=== PATIENT | female | born 1980 | race Caucasian/White ===

== ENCOUNTER 2016-08-08 17:34 | Emergency (ER) | payer OTHER ==
[~2016-08-08] VITALS: Ht 160 cm; Wt 125.0 kg
[2016-08-08 17:45] VITALS: BP 207/123; PULSE 126; RESP 24; TEMP 98; O2SAT 98
[2016-08-08 17:49] VITALS: PULSE 98
--- NOTE | 2016-08-08 17:52 | PD ---
Physical Exam Date Seen by Provider: Aug 08, 2016 Time Seen by Provider: 17:48 Data Data Last Documented VS Vital Signs Date Time Temp Pulse Resp B/P Pulse Ox O2 Delivery O2 Flow Rate FiO2 08/08/16 17:45 98.0 126 24 207/123 98 Room Air MDM Supervised Visit with ESTRELLITA: No Narrative Course 36 YO F presents via EMS with complaint of 3 day history of abdominal pain and vaginal bleeding. LMP 05/24/16. Seen at outside hospital 08/06. Vitals reviewed. Awaiting bed placement. Jia Huang Aug 08, 2016 17:52
[2016-08-08] MEDS ORDERED: SODIUM CHLORIDE 0.9% FLUSH 10 ML FLUSH IVF PRN (18:15)
[2016-08-08 18:20] VITALS: BP 233/116; PULSE 113; RESP 18; O2SAT 94
--- NOTE | 2016-08-08 18:27 | PD ---
HPI Chief Complaint: Related Problem Time Seen by Provider: 18:00 Travel History International Travel<30 days: No Contact w/Intl Traveler<30days: No Traveled to known affect area: No History of Present Illness HPI Patient was in complaining of vaginal bleeding, passing clots, lower abdominal cramping, and back pain that began approximately an hour and a half ago. Patient states she is approximately 8 weeks and was seen at a different hospital after she found out she was and did not reveal her lisinopril for high blood pressure. Patient had her lisinopril that she was on switched to methyldopa by the ER that she was seen at previously but did not have an ultrasound. Patient is A2. Denies any fevers, nausea, vomiting or chest pain, loss or change in bowel or bladder, or shortness of breath. PFSH Past Medical History Hypertension: Yes Social History Tobacco Use: No Substance Use: No Allergies-Medications (Allergen,Severity, Reaction): Coded Allergies: Bee Sting (Verified Allergy, Severe, Anaphylaxis, 08/08/16) Penicillin (Verified Allergy, Severe, UNKNOWN , 08/08/16) Reported Meds & Prescriptions Reported Meds & Active Scripts Active Lortab (Hydrocodone-Acetaminophen) 5-325 Mg Tab 1 Tab PO Q8HR PRN Ibuprofen 800 Mg Tab 800 Mg PO Q8H PRN Reported Methyldopa 500 Mg Tab 500 Mg PO DAILY Methyldopa 250 Mg Tab 250 Mg PO HS Lisinopril 5 Mg Tab 5 Mg PO DAILY Review of Systems Except as stated in HPI: all other systems reviewed are Neg Physical Exam Narrative GENERAL: Well-developed, overly nourished, in no acute distress, and non-ill appearing. SKIN: Focused skin assessment warm and dry. HEAD: Atraumatic. Normocephalic. EYES: Pupils equal and round. EOMI. No scleral icterus. No injection or drainage. ENT: No nasal bleeding or discharge. Mucous membranes pink and moist. NECK: Trachea midline. Supple. No nuclear rigidity. RESPIRATORY: No accessory muscle use. No respiratory distress. GASTROINTESTINAL: Abdomen soft, suprapubic tenderness, nondistended. Hepatic and splenic margins not palpable. No pulsatile mass. GENITOURINARY: Normal external genitalia without lesions or erythema. Vaginal vault with blood and clots. Cervical os was open with a small amount of tissue coming from the opening. This exam was performed with presence of staffing mgrBAUTISTA Guzman at all times MUSCULOSKELETAL: No obvious deformities. No clubbing. No cyanosis. No edema. Full range of motion. NEUROLOGICAL: Awake and alert. No obvious cranial nerve deficits. Motor grossly within normal limits. Normal speech. PSYCHIATRIC: Appropriate mood and affect; insight and judgment normal. Data Data Last Documented VS Orders Beta Hcg (Quant/Titer) (08/08/16 18:01) Complete Blood Count With Diff (08/08/16 18:) Basic Metabolic Panel (Bmp) (08/08/16 18:01) Complete Rh (08/08/16 18:) Urinalysis - C+S If Indicated (08/08/16 18:) Iv Access Insert/Monitor (08/08/16 18:) Ecg Monitoring (08/08/16 18:) Cath For Specimen (08/08/16 18:) Sodium Chloride 0.9% Flush (Ns Flush) (08/08/16 18:15) Morphine Inj (Morphine Inj) (08/08/16 18:30) Ondansetron Inj (Zofran Inj) (08/08/16 18:30) Morphine Inj (Morphine Inj) (08/08/16 19:45) Ketorolac Inj (Toradol Inj) (08/08/16 20:00) Labs MDM Medical Decision Making Medical Screen Exam Complete: Yes Emergency Medical Condition: Yes Differential Diagnosis Threatened miscarriage, inevitable miscarriage, completed miscarriage, spontaneous miscarriage, preeclampsia, anemia, electrolyte abnormality, other Narrative Course 1954 patient was reassessed. Obtain complaining of abdominal cramping and pain. Pelvic exam was reperformed. This time more tissue was outside the cervical os. Products of conception were easily removed using forceps sponge clamp and sent for pathology. Patient tolerated procedure well. There is no complications. This was performed with presence of the staffing mgr Darcy at all times. Patient presented with vaginal bleeding and lower abdominal pain and was found to be having a spontaneous . There is no evidence to suggest ectopic , nor cervicitis, PID or torsion at this time. There was no evidence to support colitis, diverticulitis, obstruction, abdominal or femoral herniation , volvulus, early appendicitis, or hernial incarceration or strangulation at this time. Patient is stable and no clinical evidence of anemia. There is no RH incompatibility. Patient's leukocytosis is likely stress-induced, hematuria is likely contaminant from vaginal bleeding, beta hCG was 3425. The patient was instructed to follow up with OB within 2-3 days, for repeat bloodwork and possible ultrasound to evaluate for retained products of conception, and was given contact information. She was given warnings to return if bleeding worsened , felt faint or passed out, fever, worsening pain, inability to tolerate fluids , or as needed. The patient agreed with plan. Patient in no obvious distress upon re-evaluation. All pertinent laboratory result(s) discussed with patient. Discussed all findings and plan of care with Dr. Cash prior to discharge, who is in agreement with plan of care and disposition. Patient was asked if they wanted to speak to my attending, which the patient did not wish to do at this time. Any questions/concerns in reference to patient diagnosis/condition discussed and clarified prior to patient's discharge. Reinforced sheer importance of close follow up with patient 's primary physician or primary care clinic and/or OB. Instructed patient to return to ED immediately, if symptoms return/worsen. Pt showed understanding of above instructions. Further instructions and recommendations were detailed in discharge paperwork. Pt ambulated without difficulty out of ED at discharge. Diagnosis Primary Impression: Spontaneous miscarriage Referrals: [facility] Patient Instructions: General Instructions, Miscarriage (ED) Additional Instructions: Follow-up with your primary care physician or OB in 3 days for reevaluation and possible ultrasound to evaluate for retained products of conception and repeat beta-hCG. Take all medication as prescribed. Return to the emergency department if symptoms get worse, develop fever, uncontrolled vomiting, severe abdominal pain, or for other concerns. Med/Other Pt SpecificInfo: Prescription(s) given Scripts Hydrocodone-Acetaminophen (Lortab)5-325 Mg Tab1 Tab PO Q8HR PRN (PAIN GREATER THAN 7) #7 TAB Ref 0 Prov:Yulissa Cash MD 08/08/16 Ibuprofen 800 Mg Mml630 Mg PO Q8H PRN (PAIN SCALE 1 TO 10) #21 TAB Ref 0 Prov:Yulissa Cash MD 08/08/16 Disposition: 01 DISCHARGE HOME Condition: Stable Chris White Aug 08, 2016 18:27 Carbon Dioxide Level 22.6 MEQ/L Anion Gap 9 MEQ/L Blood Urea Nitrogen 6 MG/DL Creatinine 0.57 MG/DL Estimat Glomerular Filtration 119 ML/MIN Rate Random Glucose 88 MG/DL Calcium Level 8.9 MG/DL Human Chorionic Gonadotropin, 3425 MIU/ML Quant Urine Color LIGHT-RED Urine Turbidity CLEAR Urine pH 6.0 Urine Specific [place] 1.005 Urine Protein 30 mg/dL Urine Glucose (UA) NEG mg/dL Urine Ketones NEG mg/dL Urine Occult Blood LARGE Urine Nitrite NEG Urine Bilirubin NEG Urine Urobilinogen LESS THAN 2.0 MG/DL Urine Leukocyte Esterase SMALL Urine RBC 50-99 /hpf Urine WBC 6-8 /hpf Urine Squamous Epithelial 6-8 /hpf Cells Urine Bacteria NONE /hpf Microscopic Urinalysis Comment CULT NOT INDICATED Blood Type O POSITIVE Rho(D) Type POSITIVE MDM Medical Decision Making Medical Screen Exam Complete: Yes Emergency Medical Condition: Yes Differential Diagnosis Threatened miscarriage, inevitable miscarriage, completed miscarriage, spontaneous miscarriage, preeclampsia, anemia, electrolyte abnormality, other Narrative Course 1954 patient was reassessed. Obtain complaining of abdominal cramping and pain. Pelvic exam was reperformed. This time more tissue was outside the cervical os. Products of conception were easily removed using forceps sponge clamp and sent for pathology. Patient tolerated procedure well. There is no complications. This was performed with presence of the staffing mgr Evie at all times. Patient presented with vaginal bleeding and lower abdominal pain and was found to be having a spontaneous . There is no evidence to suggest ectopic , nor cervicitis, PID or torsion at this time. There was no evidence to support colitis, diverticulitis, obstruction, abdominal or femoral herniation , volvulus, early appendicitis, or hernial incarceration or strangulation at this time. Patient is stable and no clinical evidence of anemia. There is no RH incompatibility. Patient's leukocytosis is likely stress-induced, hematuria is likely contaminant from vaginal bleeding, beta hCG was 3425. The patient was instructed to follow up with OB within 2-3 days, for repeat bloodwork and possible ultrasound to evaluate for retained products of conception, and was given contact information. She was given warnings to return if bleeding worsened , felt faint or passed out, fever, worsening pain, inability to tolerate fluids , or as needed. The patient agreed with plan. Patient in no obvious distress upon re-evaluation. All pertinent laboratory result(s) discussed with patient. Discussed all findings and plan of care with Dr. Cash prior to discharge, who is in agreement with plan of care and disposition. Patient was asked if they wanted to speak to my attending, which the patient did not wish to do at this time. Any questions/concerns in reference to patient diagnosis/condition discussed and clarified prior to patient's discharge. Reinforced sheer importance of close follow up with patient 's primary physician or primary care clinic and/or OB. Instructed patient to return to ED immediately, if symptoms return/worsen. Pt showed understanding of above instructions. Further instructions and recommendations were detailed in discharge paperwork. Pt ambulated without difficulty out of ED at discharge. Diagnosis Primary Impression: Spontaneous miscarriage Referrals: [facility] Patient Instructions: General Instructions, Miscarriage (ED) Additional Instructions: Follow-up with your primary care physician or OB in 3 days for reevaluation and possible ultrasound to evaluate for retained products of conception and repeat beta-hCG. Take all medication as prescribed. Return to the emergency department if symptoms get worse, develop fever, uncontrolled vomiting, severe abdominal pain, or for other concerns. Med/Other Pt SpecificInfo: Prescription(s) given Scripts Hydrocodone-Acetaminophen (Lortab)5-325 Mg Tab1 Tab PO Q8HR PRN (PAIN GREATER THAN 7) #7 TAB Ref 0 Prov:Yulissa Cash MD 08/08/16 Ibuprofen 800 Mg Pie540 Mg PO Q8H PRN (PAIN SCALE 1 TO 10) #21 TAB Ref 0 Prov:Yulissa Cash MD 08/08/16 Disposition: 01 DISCHARGE HOME Condition: Stable Chris White Aug 08, 2016 18:27
[2016-08-08] MEDS ORDERED: ONDANSETRON HCL 4 MG/2 ML VIAL IV PUSH ONE (18:30)
[2016-08-08] MEDS ORDERED: MORPHINE SULFATE 4 MG/ML INJ IV PUSH ONE ×2 (18:30→19:45)
[2016-08-08 18:55] VITALS: BP 184/79; PULSE 105; RESP 18; O2SAT 95
[2016-08-08] MEDS ORDERED: LISI-519 PO (18:55)
[2016-08-08] MEDS ORDERED: METH250T PO (18:55)
[2016-08-08] MEDS ORDERED: METH500T PO (18:55)
[2016-08-08 19:25] LABS: AUTOMATED NEUTROPHIL # 11.4 TH/MM3 (1.8-7.7); BASOPHIL # 0.1 TH/MM3 (0-0.2); BASOPHIL % 0.8 % (0.0-2.0); EOSINOPHIL # 0.3 TH/MM3 (0-0.4); EOSINOPHIL % 2.1 % (0.0-4.0); HEMATOCRIT 37.6 % (35.0-46.0); HEMO FLAGS DIFF FINAL; LYMPH % 19.1 % (9.0-44.0); LYMPHOCYTE # 3.1 TH/MM3 (1.0-4.8); MEAN CELL VOLUME 85.9 FL (80.0-100.0); MEAN CORPUSCULAR HEMOGLOBIN 29.6 PG (27.0-34.0); MEAN CORPUSCULAR HGB CONC 34.5 % (32.0-36.0); MONO % 7.1 % (0.0-8.0); NEUT % 70.9 % (16.0-70.0); PLATELET COUNT 311 TH/MM3 (150-450); RED BLOOD COUNT 4.38 MIL/MM3 (4.00-5.30); RED CELL DISTRIBUTION WIDTH 13.9 % (11.6-17.2)
[2016-08-08 19:44] LABS: BLOOD, URINE LARGE (NEG); GLUCOSE,URINE NEG (NEG); KETONE, URINE NEG (NEG); NITRITE,URINE NEG (NEG)
[2016-08-08 19:46] LABS: URINE COLOR LIGHT-RED (YELLW/STRAW)
[2016-08-08 19:51] LABS: BICARBONATE 22.6 MEQ/L (21.0-32.0); POTASSIUM 3.5 MEQ/L (3.5-5.1)
[2016-08-08 19:54] LABS: COMMENT (UR) CULT NOT INDICATED; CULTURE IF INDICATED CULT NOT INDICATED
[2016-08-08 19:55] LABS: COMMENT2 (UR) CULT NOT INDICATED
[2016-08-08] MEDS ORDERED: KETOROLAC TROMETHAMINE 30 MG/ML (IVP) VIAL IV PUSH ONE (20:00)
[2016-08-08] MEDS ORDERED: IBUP800T23 PO (20:12)
[2016-08-08] MEDS ORDERED: HYDR-3533 PO (20:12)
== END 2016-08-08 21:19 | disposition home or self-care (01) ==
LOC: NEPD 17:34
DX: O03.9 Complete or unspecified spontaneous abortion without complication (principal); I10 Essential (primary) hypertension
CPT/HCPCS: 80048; 81001; 84702; 85025; 86901; 88305; 96374; 96375; 96376; 99285; J1885; J2270; J2405

== ENCOUNTER 2017-05-18 09:36 | Emergency (ER) | payer SELFPAY ==
[~2017-05-18] VITALS: Ht 162.6 cm; Wt 80.0 kg
[~2017-05-18 09:36] MED LIST: HYDR-3533 PO; IBUP1TAB7 PO; LISI-519 PO; METH250T PO; METH500T PO
[2017-05-18 09:42] VITALS: BP 205/129; PULSE 103; RESP 17; TEMP 98.1; O2SAT 100
[2017-05-18] MEDS ORDERED: KETOROLAC TROMETHAMINE 30 MG/ML (IVP) VIAL IV PUSH ONE (11:30)
[2017-05-18 11:58] VITALS: BP 222/134; PULSE 104; RESP 16; O2SAT 97
[2017-05-18 12:05] LABS: AUTOMATED NEUTROPHIL # 4.5 TH/MM3 (1.8-7.7); BASOPHIL # 0.1 TH/MM3 (0-0.2); BASOPHIL % 1.1 % (0.0-2.0); EOSINOPHIL # 0.2 TH/MM3 (0-0.4); EOSINOPHIL % 2.8 % (0.0-4.0); HEMATOCRIT 44.8 % (35.0-46.0); HEMOGLOBIN 15.5 GM/DL (11.6-15.3); LYMPH % 31.2 % (9.0-44.0); LYMPHOCYTE # 2.6 TH/MM3 (1.0-4.8); MEAN CELL VOLUME 85.5 FL (80.0-100.0); MEAN CORPUSCULAR HEMOGLOBIN 29.5 PG (27.0-34.0); MEAN CORPUSCULAR HGB CONC 34.6 % (32.0-36.0); MONO % 10.7 % (0.0-8.0); MONOCYTE # 0.9 TH/MM3 (0-0.9); NEUT % 54.2 % (16.0-70.0); PLATELET COUNT 257 TH/MM3 (150-450); RED BLOOD COUNT 5.24 MIL/MM3 (4.00-5.30); RED CELL DISTRIBUTION WIDTH 15.9 % (11.6-17.2); WHITE BLOOD COUNT 8.3 TH/MM3 (4.0-11.0)
[2017-05-18 12:23] LABS: BILIRUBIN, URINE NEG (NEG); BLOOD, URINE MOD (NEG); GLUCOSE,URINE NEG (NEG); KETONE, URINE NEG (NEG); NITRITE,URINE NEG (NEG); SQUAMOUS EPITHELIAL CELL URINE <1 /hpf (0-5); TRANSITIONAL EPI CELLS, URINE <1 /hpf; URINE COLOR YELLOW (YELLW/STRAW); URINE LEUKOCYTE ESTERASE NEG (NEG)
--- NOTE | 2017-05-18 12:55 | RADRPT ---
EXAM DATE/TIME: 05/18/2017 11:55 [facility] COMPARISON: No previous studies available for comparison. INDICATIONS : Right pelvic pain. MEDICAL HISTORY : Hypertension. SURGICAL HISTORY : Tonsillectomy. Appendectomy. Cholecystectomy. ENCOUNTER: Initial ACUITY: 1 day PAIN SCORE: 4/10 LOCATION: Bilateral pelvis MEASUREMENTS: UTERUS: 7.8 x 3.0 x 5.3 cm ENDOMETRIAL STRIPE: 3 mm RIGHT OVARY: 3.8 x 2.0 x 3.0 cm LEFT OVARY: 2.9 x 2.4 x 1.8 cm FINDINGS: UTERUS: The myometrium has homogeneous echotexture without mass. RIGHT OVARY: Ovary contains no mass or significant cystic lesion.Several follicular cyst. LEFT OVARY: Ovary contains no mass or significant cystic lesion. Several follicular cysts. MISCELLANEOUS: No free fluid. CONCLUSION: Negative pelvic sonogram. Estevan Guy MD on May 18, 2017 at 12:52 Board Certified Radiologist. This report was verified electronically.
--- NOTE | 2017-05-18 14:20 | PD ---
HPI Chief Complaint: Front Desk Administrator Problem/Complaint Time Seen by Provider: 11:17 Travel History International Travel<30 days: No Contact w/Intl Traveler<30days: No Traveled to known affect area: No History of Present Illness HPI 36-year-old woman presents emerged department of lower abdominal pain and vaginal bleeding. States she has had several days of intermittent vaginal cramping, mostly yesterday, and then bleeding today. She had a miscarriage a couple months ago. She had 3 total miscarriages. No live . 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 Otherwise been feeling generally well. Is sexually active one male partner. No other complaints. History Past Medical History Medical History: Denies Significant Hx LMP: 04/30/17 : 3 Para: 0 Social History Alcohol Use: Yes Tobacco Use: Yes Allergies-Medications (Allergen,Severity, Reaction): Coded Allergies: bee venom protein (honey bee) (Unverified Allergy, Severe, Anaphylaxis, ) penicillin G (Unverified Allergy, Severe, UNKNOWN , 05/18/17) Reported Meds & Prescriptions Reported Meds & Active Scripts Active No Active Prescriptions or Reported Medications Review of Systems Except as stated in HPI: all other systems reviewed are Neg Physical Exam Narrative GENERAL: Well-appearing 28-year-old woman, no acute distress. SKIN: Focused skin assessment warm/dry. HEAD: Atraumatic. Normocephalic. EYES: Pupils equal and round. No scleral icterus. No injection or drainage. ENT: No nasal bleeding or discharge. Mucous membranes pink and moist. NECK: Trachea midline. No JVD. CARDIOVASCULAR: Regular rate and rhythm. No murmur appreciated. RESPIRATORY: No accessory muscle use. Clear to auscultation. Breath sounds equal bilaterally. GASTROINTESTINAL: Abdomen soft, non-tender, nondistended. Hepatic and splenic margins not palpable. MUSCULOSKELETAL: No obvious deformities. No clubbing. No cyanosis. No edema. NEUROLOGICAL: Awake and alert. No obvious cranial nerve deficits. Motor grossly within normal limits. Normal speech. PELVIC: Normal external female genitalia. Scant blood in the vaginal vault. Normal bimanual exam. No palpable uterine enlargement or adnexal masses. A little bit of right adnexal tenderness. Data Data Last Documented VS Vital Signs Date Time Temp Pulse Resp B/P (MAP) Pulse Ox O2 Delivery O2 Flow Rate FiO2 05/18/17 11:58 104 16 222/134 (163) 97 Room Air 05/18/17 09:42 98.1 Orders Orders Complete Blood Count With Diff (05/18/17 11:17) Thyroid Stimulating Hormone (05/18/17 11:23) Ed Urine Pregnancytest Poc (05/18/17 11:23) Us Pelvis Comp W Dop Transvag (05/18/17 ) Gc And Chlamydia Pcr (05/18/17 11:24) Wet Prep Profile (05/18/17 11:24) Ketorolac Inj (Toradol Inj) (05/18/17 11:30) Ua Includes Microscopic (05/18/17 11:41) Labs Laboratory Tests Test 05/18/17 11:30 White Blood Count 8.3 TH/MM3 Red Blood Count 5.24 MIL/MM3 Hemoglobin 15.5 GM/DL Hematocrit 44.8 % Mean Corpuscular Volume 85.5 FL Mean Corpuscular Hemoglobin 29.5 PG Mean Corpuscular Hemoglobin Concent 34.6 % Red Cell Distribution Width 15.9 % Platelet Count 257 TH/MM3 Mean Platelet Volume 9.0 FL Neutrophils (%) (Auto) 54.2 % Lymphocytes (%) (Auto) 31.2 % Monocytes (%) (Auto) 10.7 % Eosinophils (%) (Auto) 2.8 % Basophils (%) (Auto) 1.1 % Neutrophils # (Auto) 4.5 TH/MM3 Lymphocytes # (Auto) 2.6 TH/MM3 Monocytes # (Auto) 0.9 TH/MM3 Eosinophils # (Auto) 0.2 TH/MM3 Basophils # (Auto) 0.1 TH/MM3 CBC Comment DIFF FINAL Differential Comment Urine Color YELLOW Urine Turbidity CLEAR Urine pH 6.0 Urine Specific [place] 1.015 Urine Protein TRACE mg/dL Urine Glucose (UA) NEG mg/dL Urine Ketones NEG mg/dL Urine Occult Blood MOD Urine Nitrite NEG Urine Bilirubin NEG Urine Urobilinogen LESS THAN 2.0 MG/DL Urine Leukocyte Esterase NEG Urine RBC 1 /hpf Urine WBC LESS THAN 1 /hpf Urine Squamous Epithelial Cells <1 /hpf Urine Transitional Epithelial Cells <1 /hpf Clue Cells (Wet Prep) NONE SEEN Vaginal Trichomonas (Wet Prep) NONE SEEN Vaginal Yeast (Wet Prep) NONE SEEN Thyroid Stimulating Hormone 3rd Gen 0.925 uIU/ML MDM Medical Decision Making Medical Screen Exam Complete: Yes Emergency Medical Condition: Yes Interpretation(s) LABS: CBC is unremarkable. TSH unremarkable UA unremarkable Wet prep negative Pelvic ultrasound negative Differential Diagnosis Fibroids, dysmenorrhea, infection, other Narrative Course Medical decision-making 28-year-old woman with pelvic pain and bleeding. Normal exam. Normal workup. Recommend outpatient follow-up. Diagnosis Primary Impression: Vaginal bleeding Additional Instructions: Take Aleve if needed for pain. Follow-up with [facility] if you have persistent symptoms. Return to the emergency department for any new or worsening symptoms. Med/Other Pt SpecificInfo: No Change to Meds Scripts No Active Prescriptions or Reported Meds Disposition: 01 DISCHARGE HOME Condition: Stable Jaime Whalen MD May 18, 2017 14:20
[2017-05-18] MEDS ORDERED: LISI20TA PO (14:27)
== END 2017-05-18 14:49 | disposition home or self-care (01) ==
LOC: NEPD 09:36
DX: N93.9 Abnormal uterine and vaginal bleeding, unspecified (principal); I10 Essential (primary) hypertension; Z72.0 Tobacco use; Z88.0 Allergy status to penicillin
CPT/HCPCS: 76830; 76856; 81001; 84443; 84703; 85025; 87210; 87491; 87591; 93975; 96374; 99284; J1885